=== PATIENT | male | born 1945 | race Caucasian/White ===

== ENCOUNTER 2016-06-01 07:17 | Day surgery (SDC) | payer MEDICARE, BC ==
[~2016-06-01] VITALS: Ht 182.9 cm; Wt 112.0 kg
[2016-06-01] VITALS (18 sets, daily range): BP systolic 131–176; BP diastolic 78–98; PULSE 48–63; RESP 14–18; TEMP 97.3–98.7; O2SAT 93–99; Ht 182.9 cm; Wt 112.0 kg
[~2016-06-01 07:17] MED LIST: ATEN-39 PO; CELE-85 PO; FENO160T12 PO; LIDOCAINE 1% (10mg/ml) 2ml SDV INJ ONE; LR 1,000 ML IV SCH; MULT-1198 PO; OMEP40CA52 PO; SUCR1TAB PO; TRAM50TA4 PO; UBID10CA6 PO; ZALE10CA PO
[2016-06-01] MEDS ORDERED: FLEET PHOSPHO-SODA 133 ML ENEMA RECTALLY PRN (07:45)
[2016-06-01] MEDS ORDERED: MIDAZOLAM 5mg/5ml INJECTION ONE ×2 (08:53→09:21)
[2016-06-01] MEDS ORDERED: FENTANYL 100mcg/2ml INJECTION ONE (08:53)
[2016-06-01] MEDS ORDERED: MIDAZOLAM 2mg/2ml INJECTION ONE ×2 (09:07→09:11)
[2016-06-01] MEDS ORDERED: DiphenhydrAMINE 50 MG/ML INJECTION ONE (09:14)
[2016-06-01] MEDS ORDERED: CLINDAMYCIN 600mg IVPB 50 ML IV ONE (09:30)
--- NOTE | 2016-06-01 15:03 | OPNOTEF ---
DATE OF PROCEDURE: 06/01/2016 PHYSICIAN: Lam Nesbitt DO PROCEDURE: Colonoscopy. INDICATION FOR PROCEDURE History of colon polyps. ASA CLASSIFICATION: 2 DESCRIPTION OF PROCEDURE Consent was signed and on the chart. Routine monitoring with ECG, continuous oximetry and noninvasive blood pressure was performed throughout the procedure and found to be within normal limits. IV sedation was performed with a total of 11 mg of Versed and 100 mcg of fentanyl. He was also given 50 mg of Benadryl and 600 mg of clindamycin prior to the procedure due to indwelling hardware. Prior to the procedure, the patient was brought to the endoscopy lab where a brief review of his medical history and physical exam was performed. The procedure was described to him and he was agreeable to continue. All questions were answered. He was given IV sedation and placed in left lateral decubitus position. A digital rectal exam revealed a normal size and contour prostate. No masses. The colonoscope was introduced through the anal verge and advanced to the cecum without difficulty. Visualization was adequate throughout the exam. From the cecum through the ascending and transverse colon, there were no polyps, masses, lesions or diverticula. He did have a distinct polyp that was removed at the splenic flexure with cold forceps. He had diverticulosis of the descending and sigmoid colon and then at 20 cm another polyp that was removed by cold forceps. He tolerated the procedure well. There were no complications. IMPRESSION 1. Polyp at splenic flexure removed with cold forceps. 2. Diverticulosis of the descending and sigmoid colon. 3. Polyp at 20 cm removed with cold forceps. RECOMMENDATIONS 1. Review the path report when available. 2. Repeat as indicated. KRIS
== END 2016-06-01 10:50 | disposition home or self-care (01) ==
LOC: NSC 07:17
PROVIDERS: ATTEND Internal Medicine
DX: Z12.11 Encounter for screening for malignant neoplasm of colon (principal); D12.3 Benign neoplasm of transverse colon; D12.6 Benign neoplasm of colon, unspecified; Z86.010 Personal history of colon polyps; K57.30 Diverticulosis of large intestine without perforation or abscess without bleeding; I10 Essential (primary) hypertension; E78.2 Mixed hyperlipidemia; K21.9 Gastro-esophageal reflux disease without esophagitis; Z79.1 Long term (current) use of non-steroidal anti-inflammatories (NSAID); Z79.899 Other long term (current) drug therapy
CPT/HCPCS: 45380; A9270; J1200; J2250; J3010; 88305

== ENCOUNTER 2017-04-25 07:30 | Inpatient (IN) ==
--- OUTSIDE RECORDS SUMMARY | 2017-05-18 05:40 | External Medical Summary | Continuity of Care Document ---
:1945 Author Organization [facility] Care Team Providers Name Role Phone [employer] Unavailable Unavailable Allergies, Adverse Reactions, Alerts Substance Category Reaction Severity Reaction Status Date Comments Source type Reported erythromycin Datatype(A gi upset Allergy Active [facility] L1.2)-Drug [facility] niacin Datatype(A gi upset Allergy Active [facility] L1.2)-[facility] Immunizations Immunization Date Given Site Status Last Updated Comments Source influenza virus 02/07/2006 Left completed [facility] vaccine Deltoid [facility] diphtheria-tetanu 01/26/2005 Immunizatio completed [facility] s toxoids n, History [facility] pneumococcal 12/26/2003 Immunizatio completed [facility] vaccine n, History [facility] Encounters Location Location Encounter Encounter Reason Attending ADM DC Status Source Details Type Number For Provider Date Date Visit KIRSTY LOFTON [place] [id number] SONIA AJ 08/01 08/01 Active [facility] KIRSTY /2006 [facility]
[2017-05-18 05:52] VITALS: BMI 35.4
[2017-05-18] MEDS ORDERED: TRANEXAMIC ACID 1,000 MG in NS 100 ML IV ONE ×2 (06:00→07:00)
[2017-05-18] MEDS ORDERED: DEXAMETHASONE 4 MG/ML INJECTION IVP ONE (06:00)
[2017-05-18] MEDS ORDERED: ONDANSETRON 4 MG/2 ML INJECTION IVP ONE (06:00)
[2017-05-18] MEDS ORDERED: FAMOTIDINE PB 20 MG/50 ML BAG IV ONE (06:00)
[2017-05-18] MEDS ORDERED: METOCLOPRAMIDE 10mg/2ml INJECTION IVP ONE (06:00)
[2017-05-18] MEDS ORDERED: ACETAMINOPHEN 500 MG TABLET PO ONE (06:00)
[2017-05-18] MEDS ORDERED: LIDOCAINE 1% (10mg/ml) 2mL INJ PF SDV ID ONE (06:00)
[2017-05-18] MEDS ORDERED: CELECOXIB 200 MG CAPSULE PO ONE (06:00)
[2017-05-18] MEDS: LR 1,000 ML IV SCH ×2 (06:25→09:17)
[2017-05-18] MEDS ORDERED: VANCOMYCIN 1,000 MG INJECTION ONE (06:37)
[2017-05-18] MEDS: NOZIN NASAL SWAB NAS SCH ×5 (06:38→22:35)
--- NOTE | 2017-05-18 06:51 | Anesthesia Preoperative Report ---
Anesthesia Preoperative Record - Date and Time Date: 05/18/17 Preoperative Diagnosis: Lt NATASHA M16.12 Proposed Procedure: Left NATASHA NPO Since Date: 05/17/17 NPO Since Time: 21:00 Allergies/Adverse Reactions: Allergies Allergy/AdvReac Type Severity Reaction Status Date / Time azithromycin AdvReac Severe rectal Verified 05/18/17 06:04 [From Zithromax Z-[place]] bleeding - Vital Signs Vital Signs: Temperature 98.6 F 05/18/17 05:51 Pulse Rate 57 L 05/18/17 06:22 Respiratory Rate 15 05/18/17 05:51 Blood Pressure 153/89 H 05/18/17 05:51 Pulse Oximetry 96 05/18/17 05:51 Height and Weight: Height 6 ft Weight 118.3 kg Body Mass Index 35.4 - Medications Inpatient Medications: Current Medications Epinephrine HCl 0.25 mg/Bupivacaine HCl 30 ml/Ketorolac Tromethamine 60 mg/ Sodium Chloride 62.25 mls @ 1 mls/hr OPSITE INTRAOP ONE PRN Reason: Protocol Stop: 05/20/17 22:14 Tranexamic Acid 1,000 mg/ (Sodium Chloride) 110 mls @ 660 mls/hr IV INTRAOP ONE Stop: 05/18/17 07:09 Lactated Ringer's (Lactated Ringers) 1,000 mls @ 50 mls/hr IV .Q20H [facility] Last Admin: 05/18/17 06:25 Dose: 50 mls/hr Isopropyl Alcohol (Nozin Nasal Swab) 1 each KORTNEY Q1M TAMI Stop: 05/18/17 08:33 Last Admin: 05/18/17 06:43 Dose: 1 each Sodium Chloride (Iv Flush) 10 - 80 ml IV PRN PRN PRN Reason: [place] Home Medications: Home Medications Medication Instructions Recorded Confirmed Type Zaleplon [Sonata] 10 mg PO HS PRN #0 01/02/16 05/18/17 History ergocalciferol (vitamin D2) 50,000 50,000 unit PO DAILY #2 cap 04/12/17 Rx unit capsule Acetaminophen [Tylenol] 500 mg PO Q5H PRN 04/13/17 05/18/17 History Atenolol [Tenormin] 100 mg PO DAILY 04/13/17 05/18/17 History Celecoxib [Celecoxib] 200 mg PO DAILY 04/13/17 05/18/17 History Chlorthalidone 25 mg PO DAILY 04/13/17 05/18/17 History DiphenhydrAMINE [Benadryl] 1 cap PO HS PRN 04/13/17 05/18/17 History Fenofibrate [Lofibra] 160 mg PO DAILY 04/13/17 05/18/17 History Joint Soother 1 tab PO DAILY 04/13/17 05/18/17 History [place]a 5,000 mg PO DAILY 04/13/17 05/18/17 History Multivitamin [One Daily 1 each PO DAILY 04/13/17 05/18/17 History Multivitamin] Naproxen [Aleve] 220 mg PO BID PRN 04/13/17 05/18/17 History [place]-3/Dha/Epa/Fish Oil [Fish Oil 1 each PO DAILY 04/13/17 05/18/17 History 1,000 mg Softgel] Omeprazole [Prilosec] 1 cap PO ACB 04/13/17 05/18/17 History Sucralfate [Carafate] 1 gm PO DAILY 04/13/17 05/18/17 History Turmeric Root Extract [Turmeric] 1,600 mg PO DAILY 04/13/17 05/18/17 History Ubidecarenone [Co Q-10] 200 mg PO DAILY 04/13/17 05/18/17 History Benzonatate [Tessalon Perles] 1 cap PO TID PRN 05/08/17 05/18/17 History Fluticasone Nasal [place] [Flonase] 16 gm NS PRN PRN 05/08/17 05/18/17 History Multivitamin [One Daily] 1 each PO DAILY 05/08/17 05/18/17 History Tramadol [Ultram] 25 - 50 mg PO Q6HR PRN 05/11/17 05/18/17 History [place]-3/Dha/Epa/Fish Oil [Fish Oil 5 each PO DAILY 05/18/17 05/18/17 History 1,000 mg Softgel] Is Patient on Beta Juliette?: No - Medical History Respiratory: Reports: Bronchitis, Other (recent URI) DENIES: Asthma, Chronic Obstructive Pulmonary Disease (COPD), Dyspnea, Orthopnea, Pulmonary Embolism, Pneumonia, Upper Respiratory Infection, Pulmonary Edema, Sleep Apnea, Tuberculosis Cardiovascular: Reports: Hypertension, High Cholesterol DENIES: Abnormal EKG, Angina, Arrhythmia, Congestive Heart Failure, Coronary Artery Disease, Heart Murmur, Hypotension, Myocardial Infarction, Rheumatic Fever, Valvular Heart Disease, Other Gastrointestional: Reports: Gastroesophageal Reflux Disease, Ulcer (hx of peptic ulcer), Other (hx of diverticulitis) DENIES: Obstructive Bowel, Hepatitis, Cirrhosis, Nausea or Vomiting Present, Gastrointestinal Bleeding, Hiatal Hernia, Morbid Obesity Neuro/Musculoskeletal: Reports: HX.MS.OSAR, Back Problems Denies: Cerebrovascular Accident, Depression, Headaches, Loss of Consciousness, Muscle Weakness, Neuromuscular Disorder, Paralysis, Paresthesia, Syncope, Seizures, Other Renal/Endocrine: DENIES: Diabetes Mellitus Type 1, Diabetes Mellitus Type 2, Renal Failure, Dialysis, Thyroid Disease, Weight Loss, Weight Gain, Other Other History: Reports: Blood Transfusions (mult with naso-pharyngeal surgeries- no known reactions), Other (insomnia) DENIES: Anesthesia Reactions (requests no IV's in hands), Now, Chemotherapy, Cancer, Hemophilia, Malignant Hyperthermia, Sickle Cell Disease - Surgical History HEENT Surgeries: Reports: Eye Surgery (cataract ext with IOL implant), Other ( 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28) GI Surgery/Treatments: Reports: Colonoscopy (polyp), EGD Musculoskeletal Surgery/Tx: Reports: Carpal Tunnel Release (bilat), Shoulder Arthroscopy (RCR/biceps tendon repair-left), Other (foot surgery-Dr Weller; lumbar back surg x2) Anesthesia Reactions: None Hx Family Anesthesia Reaction: No History of Motion Sickness: No - Social History Smoking Status: Never smoker Hx Chewing Tobacco Use: No Second Hand Exposure: No Substance Use Type: does not use Alcohol Intake Frequency: does not drink - Pertinent Findings EKG: Sinus Bradycardia - Physical Exam Respiratory Exam: Present: lungs clear, bilateral breath sounds equal Cardiovascular Exam: Present: regular rate and rhythm, no murmur - Airway Assessment Mallampati Score: I TMD: 3 Fingerbreadths Overall Assessment: no airway concerns - ASA ASA Score: 2 - Plan Regional/Trunk Block: Spinal - Discussion Discussion: Discussed risks/options/alternatives of anesthesia and questions answered. Patient consents. Nursing pain assessment noted. Present for Discussion: spouse Attestation Statement: Prior to the delivery of any anesthetic medication, I examined the patient, developed the plan, obtained the patient's consent and discussed the risk and benefits of the procedure with the patient/guardian. - Additional Information Seen by Anesthesia: Yes
[2017-05-18] MEDS ORDERED: ANESTHESIA MIXTURE 50 ML IV ONE (07:00)
[2017-05-18] MEDS ORDERED: CEFAZOLIN 1 G INJECTION IVP ONE (07:00)
[2017-05-18] MEDS ORDERED: MIDAZOLAM 2mg/2ml INJECTION ONE (07:02)
[2017-05-18] MEDS ORDERED: BUPIVACAINE 0.75%/DEXTROSE 8.5% SPINAL 2 ML AMPULE IJ ONE (07:03)
[2017-05-18] MEDS ORDERED: FentaNYL 250 MCG/5 ML INJECTION ONE (07:03)
[2017-05-18] MEDS ORDERED: LIDOCAINE 1% (10mg/ml) 30ml SDV INJ ONE (07:10)
[2017-05-18] MEDS ORDERED: ZALEPLON 10 MG PO PRN (07:15)
[2017-05-18] MEDS ORDERED: DiphenhydrAMINE 25 MG CAPSULE PO PRN ×2 (07:15→11:07)
[2017-05-18] MEDS ORDERED: VANCOMYCIN 1,000 MG INJECTION IAR ONE (07:41)
[2017-05-18] MEDS ORDERED: EPINEPHrine PF 0.25 MG, BUPIVACAINE 0.25% PF 30 ML, KETOROLAC INJ 60 MG in NS 30 ML OPSITE ONE (08:00)
[2017-05-18] MEDS ORDERED: SALINE FLUSH 10ml SYRINGE IV PRN (08:17)
[2017-05-18] MEDS ORDERED: PROPOFOL 20 ML ONE ×3 (08:36→09:28)
--- NOTE | 2017-05-18 09:18 | Operative Note ---
- Procedure Preoperative Diagnosis: Left hip primary degenerative joint disease Postoperative Diagnosis: Same as preoperative diagnosis. Surgeon: Sheree Shields MD Front Desk Host: Mike Clark Complications: None. Anesthesia: Spinal. Estimated Blood Loss: See Anesthesia Record. Fluids: Please see Anesthesia Record. Description of Procedure: Mr. Mccall and his left hip were identified and marked in the preoperative holding area. He was brought back to the operating suite and spinal anesthetic was administered. He was then placed in a lateral decubitus position with his left hip up. The left lower extremity was prepped and draped in my normal sterile fashion. Timeout was performed. The iubenda robotic arm was used to assist with the surgery. A pelvic array was placed into the iliac crest through three small incisions. A posterior approach was utilized. An approximately 15 cm incision was made in the skin and dissection carried down to the muscle fascia which was then split in line with skin incision. Charnley retractor was placed. The short external rotators were identified and tagged and detached. A capsulotomy was performed and the hip dislocated. A femoral neck osteotomy was performed at the pre-templated level measuring down from the femoral head 57mm. The head was removed and acetabulum exposed. There was a large labral fragment which is loose and flapping superiorly. Labrum was removed. The acetabulum was then registered with the robot. The robotic arm was then used to ream with a 53 reamer. The robot then was again used to place a 54 Trident cup in 40 of tilt and 20 of anteversion. A liner was then placed. The proximal femur was exposed and prepared with a cookie cutter followed by reaming and broaching to a size 7. We trialed with a posterior 0.5 head. After thorough irrigation a final Accolade 2 size 7 stem with a 27 neck was placed. Leg length and offset were checked with the robot and were good. A final +2.5 ceramic 36 mm head was placed and the hip reduced. Betadine solution was used to irrigate throughout the case. It was followed by normal saline irrigation. Joint cocktail was injected throughout soft tissue. The capsulotomy was repaired with Ethibond. Short external rotators were also repaired with Ethibond. 1 g of vancomycin powder was placed into the wound. The muscle fascia was then repaired with #1 Vicryl. I then left my dental front office assistant to close the subcutaneous tissue with 2-0 Vicryl followed by running 4-0 Monocryl skin followed by Dermabond and a sterile dressing. The patient with any placed back into supine position and taken to recovery room in the care of anesthesia.
[2017-05-18] MEDS ORDERED: NOZIN NASAL SWAB NAS ONE (11:07)
[2017-05-18] MEDS ORDERED: LORazepam 1 MG TABLET PO PRN (11:07)
[2017-05-18] MEDS ORDERED: DiphenhydrAMINE 50 MG/ML INJECTION IVP PRN (11:07)
[2017-05-18] MEDS ORDERED: ONDANSETRON 4 MG/2 ML INJECTION IVP PRN (11:07)
[2017-05-18] MEDS ORDERED: Oxycodone *IR* 5 MG TABLET PO PRN (11:07)
[2017-05-18] MEDS: CELECOXIB 200 MG CAPSULE PO SCH (11:11)
[2017-05-18] MEDS: ATENOLOL 100 MG TABLET PO SCH (11:11)
[2017-05-18] MEDS: CHLORTHALIDONE 25 MG TABLET PO SCH (11:11)
[2017-05-18] MEDS: SUCRALFATE 1 GM TABLET PO SCH (11:11)
[2017-05-18] MEDS: DOCUSATE SODIUM 100 MG CAPSULE PO SCH ×2 (11:12→20:03)
[2017-05-18] MEDS: POLYETHYL GLYCOL 3350 17gm PACKET PO SCH (11:12)
[2017-05-18] MEDS: ACETAMINOPHEN 325 MG TABLET PO SCH ×4 (11:12→20:02)
[2017-05-18] MEDS: NS 1,000 ML IV SCH ×2 (11:23→22:36)
[2017-05-18] MEDS ORDERED: ZALEPLON 5 MG CAPSULE PO PRN (11:26)
--- NOTE | 2017-05-18 11:37 | Anesthesia Postoperative Note ---
- Date and Time Date: 05/18/17 Time: 11:00 - Status Patient Participated in Evaluation: Patient Participated in Person Vital Signs: Temperature 97.0 F 05/18/17 10:18 Pulse Rate 65 05/18/17 11:31 Respiratory Rate 16 05/18/17 11:31 Blood Pressure 131/73 05/18/17 11:12 Pulse Oximetry 96 05/18/17 11:31 Respiratory Function: Airway Patent, Regular Respirations Cardiovascular Function: Regular Pulse EKG: Sinus Bradycardia Mental Status: Alert and Oriented Pain Intensity: 0 Hydration: Taking PO Fluids, IV Infusing Complications During Recover: None Apparent - Follow-Up Instructions Instructions: Per Surgeon
--- NOTE | 2017-05-18 11:48 | XRay Report ---
Indication: postoperative image PROCEDURE: XR pelvis w/ 1 view LT hip: Encounter: Initial Comparison: April 12, 2017 Findings: Postoperative changes of left total hip replacement are seen. There is expected postoperative subcutaneous gas. No evidence of hardware failure or acute fracture. No retained radiopaque surgical instruments or sponges seen. Impression: New left total hip prosthesis without evidence of immediate complication. .
[2017-05-18] MEDS: NAPROXEN 220 MG TABLET PO SCH ×2 (13:33→20:02)
[2017-05-18] MEDS: CEFAZOLIN 2 G in NS 50 ML IV SCH ×2 (15:14→22:36)
[2017-05-18] MEDS: TRAMADOL 50 MG TABLET PO PRN (17:53)
[2017-05-18] MEDS: ASPIRIN *EC* 81 MG TABLET PO SCH (20:03)
[2017-05-18] MEDS ORDERED: SENNOSIDES 8.6 MG TABLET PO SCH (21:00)
[2017-05-19] MEDS: TRAMADOL 50 MG TABLET PO PRN (03:47)
[2017-05-19] MEDS: NOZIN NASAL SWAB NAS SCH (05:38)
[2017-05-19] MEDS ORDERED: OMEPRAZOLE 20 MG CAPSULE PO SCH (06:30)
[2017-05-19] MEDS ORDERED: SENNOSIDES 8.6 MG TABLET PO PRN (07:13)
[2017-05-19] MEDS ORDERED: FENOFIBRATE 160 MG TABLET PO SCH (08:00)
[2017-05-19] MEDS: SUCRALFATE 1 GM TABLET PO SCH (08:16)
[2017-05-19] MEDS: ATENOLOL 100 MG TABLET PO SCH (08:16)
[2017-05-19] MEDS: CELECOXIB 200 MG CAPSULE PO SCH (08:16)
[2017-05-19] MEDS: ACETAMINOPHEN 325 MG TABLET PO SCH ×2 (08:17→15:38)
[2017-05-19] MEDS: ASPIRIN *EC* 81 MG TABLET PO SCH (08:19)
[2017-05-19] MEDS: CHLORTHALIDONE 25 MG TABLET PO SCH (08:19)
[2017-05-19] MEDS: DOCUSATE SODIUM 100 MG CAPSULE PO SCH (08:19)
[2017-05-19] MEDS: POLYETHYL GLYCOL 3350 17gm PACKET PO SCH (08:21)
[2017-05-19] MEDS: NAPROXEN 220 MG TABLET PO SCH (08:25)
--- NOTE | 2017-05-19 08:44 | Orthopedic Progress Note ---
Date: Date: 05/19/17 Time: 836 Subjective/Severity of Illness: Mr Mccall is doing very well. Pain is very well controlled. He had a little drainage and a few chava were placed yesterday. No CP, cough or SOA. Orthopedic Objective PO Vital signs: Temperature 98.0 F 05/19/17 07:33 Pulse Rate 61 05/19/17 07:33 Respiratory Rate 18 05/19/17 07:33 Blood Pressure 115/67 05/19/17 07:33 Pulse Oximetry 95 05/19/17 07:33 Height and Weight: Height 6 ft Weight 266 lb 12.149 oz Body Mass Index 35.4 - Constitutional General Appearance: Present: alert, cooperative, no acute distress - Respiratory Exam Present: non-labored - Surgical Site Incision: dressing intact, bloody drainage present - Neurological Exam Present: no deficits - Psychiatric Exam Present: alert, normal affect - Labs Result Diagrams: 05/19/17 04:17 05/19/17 04:17 Abnormal lab results 05/19/17 05/19/17 Range/Units 04:17 04:17 Hgb 11.9 L (13.5-17.5) GM/DL Hct 35.4 L (41-53) % Turbidity 23 H (0-20) BUN 36.0 H (9-20) MG/DL BUN/Creatinine Ratio 28 H (6-26) RATIO Glucose 167 H (75-110) MG/DL Calculated Osmolality 287 H (261-280) MOSM/KG H & H 05/19/17 Range/Units 04:17 Hgb 11.9 L (13.5-17.5) GM/DL Hct 35.4 L (41-53) % Orthopedic Assessment and Plan (1) Primary osteoarthritis of left hip Status: Acute Assessment and Plan: I will recheck this later today and get a Mepilex dressing on before he goes home. Otherwise he is doing well. SCDs, aspirin and mobilization for added DVT coverage. Case mgmt for discharge planning. - Anticoagulation Therapy Anticoagulation: ASA 81 mg PO BID x6 weeks Hospital Course Summary Disclaimer: The visit summary below is not to be considered part of the above Progress Note.
[2017-05-19 12:03] VITALS: BP 137/76; PULSE 63; RESP 16; TEMP 98.8; O2SAT 96
--- NOTE | 2017-05-19 13:13 | Discharge Summary ---
Orthopedic Discharge Info Date of admission: 05/18/17 05:33 Primary care physician: MD Alka Beltran MD Attending Physician: Axel Shields MD Consults: 05/18/17 05:42 Consult to Anesthesiology [CONS] Routine Reason For Exam: Preoperative Assessment 05/18/17 11:07 Case Management Consult [CONS] Routine Reason For Exam: Discharge Planning DME-Walker [CONS] Routine Height: 6 ft Weight: 260 lb 12.909 oz Total Joint Outpatient Therapy [CONS] Routine Comment: Remove dressing in 2 weeks - Discharge Diagnosis (1) Primary osteoarthritis of left hip Status: Acute - Procedures Procedures: Left NATASHA 05/18/17. - Laboratory Result Diagrams: 05/19/17 04:17 05/19/17 04:17 Laboratory: Abnormal lab results 05/19/17 05/19/17 Range/Units 04:17 04:17 Hgb 11.9 L (13.5-17.5) GM/DL Hct 35.4 L (41-53) % Turbidity 23 H (0-20) BUN 36.0 H (9-20) MG/DL BUN/Creatinine Ratio 28 H (6-26) RATIO Glucose 167 H (75-110) MG/DL Calculated Osmolality 287 H (261-280) MOSM/KG H & H 05/19/17 Range/Units 04:17 Hgb 11.9 L (13.5-17.5) GM/DL Hct 35.4 L (41-53) % Orthopedic Discharge HPI - HPI Comments This patient was admitted for elective surgical tx of end stage degenerative joint disease that failed to respond to conservative treatment. Further details of this is found in the admission H&P. Orthopedic Hospital Course Hospital course: 05/19/17 13:06 After appropriate preoperative clearance and signing of operative consent, the patient was given IV antibiotics, according to orthopedic protocol. The patient was taken to the operating room and underwent elective joint arthroplasty. Following surgery, antibiotics were discontinued less than 24 hours according to joint protocol. Appropriate anticoagulants were initiated and SCDs added for DVT prevention. The dressing changed at discharge. Several chava placed before discharge due to minimal bloody drainage on the bandages. Pain control was obtained via multimodal approach but his needs were very low. Bowel motivation addressed with scheduled and PRN medications. Early mobilization was initiated through PT services. Discharge arrangements made by a collaborative effort between the patient and Case Management. Follow-up is scheduled in 2-3 weeks. Discharge instructions given by orthopedic providers and nursing staff at discharge. Discharge condition was good. Care extended to > 2 midnight stays?: No Discharge Plan - Med Rec/Dispo Referrals/Follow Up: Axel Shields MD [Physician] - 06/05/17 11:30 am Additional Instructions: [facility] ON 05/23/2017 AT 10:00AM FOR PHYSICAL THERAPY EVAL. PHONE [phone] Prescriptions: New Acetaminophen [Tylenol] 650 mg PO QID tab Aspirin *EC* [Ecotrin] 81 mg PO DAILY tab Docusate Sodium [Colace] 100 mg PO BID cap Milk of Magnesia [Mom] 30 ml PO DAILY udc PEG 3350 17gm PACKET [Miralax] 17 gm PO DAILY packet Continue Zaleplon [Sonata] 10 mg PO HS PRN #0 PRN Reason: INSOMNIA Naproxen [Aleve (Naproxen) 220 mg] 220 mg PO BID PRN PRN Reason: Headache DiphenhydrAMINE [Benadryl] 1 cap PO HS PRN PRN Reason: Insomnia Moringa 5,000 mg PO DAILY Multivitamin [One Daily Multivitamin] 1 each PO DAILY Omeprazole [Prilosec] 1 cap PO ACB [place]-3/Dha/Epa/Fish Oil [Fish Oil 1,000 mg Softgel] 1 each PO DAILY Sucralfate [Carafate] 1 gm PO DAILY Celecoxib 200 mg PO DAILY Fenofibrate [Lofibra] 160 mg PO DAILY Chlorthalidone 25 mg PO DAILY Atenolol [Tenormin] 100 mg PO DAILY Benzonatate [Tessalon Perles] 1 cap PO TID PRN PRN Reason: Cough Multivitamin [One Daily] 1 each PO DAILY [place]-3/Dha/Epa/Fish Oil [Fish Oil 1,000 mg Softgel] 5 each PO DAILY Ubidecarenone [Co Q-10] 200 mg PO DAILY Turmeric Root Extract [Turmeric] 1,600 mg PO DAILY Joint Soother 1 tab PO DAILY Fluticasone Nasal [place] [Flonase] 16 gm NS PRN PRN PRN Reason: Prn Orders Tramadol [Ultram] 25 - 50 mg PO Q6HR PRN PRN Reason: Pain ergocalciferol (vitamin D2) 50,000 unit capsule 50,000 unit PO DAILY #2 cap Discontinued Acetaminophen [Tylenol] 500 mg PO Q5H PRN PRN Reason: Headache - Disposition 01 Discharged Home, Self-Care - Dismissal Complete Discharge Instructions are:: Complete
[2017-05-19] MEDS: NS 1,000 ML IV SCH (15:38)
[2017-05-19] MEDS ORDERED: NAPROXEN 220 MG TABLET PO SCH (17:30)
[2017-05-20] MEDS ORDERED: CHLORTHALIDONE 25 MG TABLET PO SCH (08:00)
[2017-05-20] MEDS ORDERED: BISACODYL 10 MG SUPPOSITORY RECTALLY SCH (20:00)
== END 2017-05-19 13:55 | disposition home or self-care (01) | DRG 470 ==
LOC: NMC.PERIOP 05-18 05:33 → SRG 05-18 10:20
PROVIDERS: ADMIT Orthopaedic Surgery; ATTEND Orthopaedic Surgery